=== PATIENT | female | born 1950 | race Caucasian/White ===

== ENCOUNTER → 2018-01-14 09:44 | Outpatient (CLI) | payer MEDICARE, OTHER, SELFPAY ==
--- NOTE | 2018-01-14 09:50 | MM_ITS ---
MM Dig screening mamm BI w/CAD CAD Screening ORDERING PHYSICIAN : Daylin Carrillo PATIENT AGE: 67 years GENDER: Female HISTORY no hormones no new complaints. Previous benign biopsy left breast. Family history mother with breast cancer in her 50s COMPARISON: Bilateral mammograms: September 2016, July 2014. It September 2011 also July 2010 Right [id number] . TECHNIQUE: Standard CC and MLO images were obtained. Axillary cc views both breast included R2 CAD reviewed. SCREENING MAMMOGRAM FINDINGS:. ... Mild to moderate residual fibroglandular elements towards upper-outer quadrant both breast. Stable mild asymmetry RIGHT BREAST:No new areas of significant concern. . The small cluster crush stone type most likely benign calcification at left breast upper-outer quadrant right breast similar to previous studies dating back to 2013.. Grouping is actually been present since 2011, and 2009 studies with only incrementally progression. Appears be most likely benign calcification and can be followed in one year.. LEFT BREAST:No new areas of significant concern IMPRESSION: No significant new findings either breast. Bilateral follow-up in one year recommended. Right breast..: Stable appearance to the most likely benign calcifications at the upper outer quadrant Left breast: unremarkable BI-RADS Category: 2 Benign Finding(s) RECOMMENDED FOLLOW-UP: 1YR - 1 YEAR FOLLOW-UP (A letter has been sent to the patient regarding results of the study.)
--- NOTE | 2018-01-14 09:51 | XR_ITS ---
XR DEXA axial skeleton HISTORY: ITS.REASON: POST MENOPAUSAL ORDERING PHYSICIAN: Daylin Carrillo PATIENT AGE: 67 years FINDINGS: The BMD measured at the left femoral neck is 0.805 g/cm squared with a T score of -1.7 . This is considered Osteopenic according to the World Health Organization criteria. Fracture risk is Moderate. Treatment is advised. L1 L4 density T score of -1.5 consistent with osteopenia. IMPRESSION: Osteopenia with moderate fracture risk. Treatment recommended. Recommend follow-up exam January 2020
--- NOTE | 2018-01-14 09:52 | CT_ITS ---
CT lung screening EXAM: CT LUNG LOW DOSE WO CONTRAST COMPARISON: None HISTORY: 67-year-old female with nicotine dependence, tobacco use asymptomatic ITS.REASON: H/O NICOTINE DEPENDENCE ORDERING PHYSICIAN: Daylin Carrillo PATIENT AGE: 67 years TECHNIQUE: The exam was performed on a GE Light Speed [address] scanner using 2.9 mGy CTDI. A low dose helical CT CHEST was performed on a multi-detector scanner. All CT scans at the facility use one or more dose reduction, viz: automated exposure control; ma/kV adjustment per patient size (including targeted exams where dose is matched to indication; i.e. head); or iterative reconstruction technique. The LDCT was performed in a facility that meets the criteria for the screening program. Data regarding this exam was submitted to ACR which is an approved registry. The order for this exam indicates that it came as a result of a lung cancer screening counseling shard decision-making visit that included all the elements required of such a visit including smoking cessation. The radiologist interpreting this exam meets the CMS criteria for the LDCT lung cancer screening program. The exam is reported using the Lung-RADS classification scale and reported to the ACR registry. NOTE: This study was performed for the specific purposes of lung cancer screening and is not an alternative to diagnostic chest CT. RADIATION DOSE: CTDI vol(CT dose Index-volume) = 2.90 mG DLP (Dose Length Product) = 91.32 mGcm FINDINGS: Indeterminate or Suspicious Lung Nodules(Category3-4B): None Indeterminate/Non-actionable Nodules(Category2): None Benign nodules(Category1)calcified granuloma right lower lobe LUNG PARENCHYMA No lobar consolidation or collapse. Mild coarsening of the bronchovascular markings. Small lymph nodes are present in the mediastinum. Calcified nodes present in the mediastinum and [place] OTHER ANATOMIC REGIONS Lymph Nodes: No enlarged lymph nodes evident. Scattered small nodes are present in the mediastinum and [place] Pleura: Unremarkable Cardiac: There are coronary artery calcifications OTHER FINDINGS: Medium-sized hiatal hernia IMPRESSION: 1. Lung RADS Category: 2, benign 2. Other findings: Coronary artery calcifications indicating coronary artery disease. Hiatal hernia. Old granulomatous disease RECOMMENDATIONS: 12 month LDCT follow-up
== END ==
PROVIDERS: Family Provider Internal Medicine Adolescent Medicine; PCP Internal Medicine Adolescent Medicine; Visit Provider Nurse Practitioner Family
DX: Z12.31 Encounter for screening mammogram for malignant neoplasm of breast (principal); Z78.0 Asymptomatic menopausal state; Z87.891 Personal history of nicotine dependence; Z12.2 Encounter for screening for malignant neoplasm of respiratory organs; Z13.820 Encounter for screening for osteoporosis
CPT/HCPCS: 77067; 77080

== ENCOUNTER → 2018-02-09 06:34 | Outpatient (CLI) | payer MEDICARE, OTHER, SELFPAY ==
--- NOTE | 2018-02-09 06:42 | NM_ITS ---
SPECT MYOCARDIAL PERFUSION SCAN, REST AND STRESS: EXERCISE STRESS: [facility] - BEND REVIEW QGS EF AND WALL MOTION EVALUATION: QPS - PERFUSION EVALUATION: HISTORY: SOB, Fatigue, HTN, DM, Tobacco use PROCEDURE: Rest imaging performed after administration of10.77 millicuries Tc MIBI. Dose administered at7:00 a.m., with imaging thereafter. Stress imaging was then performed following8 minutes 30 seconds of exercise stress. The patient achieved a heart [id number] with projected heart rate of132 . Resting BP162/84 with stress 180/90. At maximum exercise stress,30.7 millicuries Tc MIBI administered at8:50 a.m. with [id number] minutes thereafter. FINDINGS: Perfusion Evaluation: The single slice spect images as well as the [facility] bull's-eye data summary were reviewed. Wall Motion and Ejection Fraction Evaluation: Gated SPECT review and analysis used to evaluate these features. There is a 74 % left ventricular ejection fraction. There seems to be good wall motion Decreased myocardial activity in the anterior wall with both stress and rest. Gated images calculated ejection fraction of 74% with normal wall motion IMPRESSION: This test is most consistent with breast attenuation. Clinical correlation is advised. Normal ejection fraction normal wall motion
--- NOTE | 2018-02-09 09:28 | HMH.ITSHM ---
ASA LEVOTHYROXINE LISINOPRIL BISOPROLOL METFORMIN LORATIDINE ATORVASTATIN MULTIVITAMIN CALCIUM
== END ==
PROVIDERS: Family Provider Internal Medicine Adolescent Medicine; PCP Internal Medicine Adolescent Medicine; Visit Provider Nurse Practitioner Family
DX: R06.00 Dyspnea, unspecified (principal); I25.84 Coronary atherosclerosis due to calcified coronary lesion; I25.10 Atherosclerotic heart disease of native coronary artery without angina pectoris
CPT/HCPCS: 78452; 93017; A9502

== ENCOUNTER → 2019-01-08 10:43 | Outpatient (CLI) | payer MEDICARE, OTHER, SELFPAY ==
[2019-01-08 11:21] LABS: Basophils # 0.1 K/mm3 (0-0.2); Basophils % 0.6 % (0.1-2.0); Eosinophils # 0.1 K/mm3 (0.0-0.4); Eosinophils % 1.1 % (0.1-12.0); Hematocrit 36.6 % (37.0-47.0); Hemoglobin 12.2 g/dL (12.2-16.2); Lymphocytes # 1.8 K/mm3 (0.7-4.5); Lymphocytes % 18.3 % (10-50); Mean Corpuscular HGB Conc 33.3 g/dL (31.8-35.4); Mean Corpuscular Hemoglobin 26.7 pg (27.0-31.2); Mean Corpuscular Volume 80.3 fl (81-99); Monocytes # 0.6 K/mm3 (0.1-1.0); Monocytes % 5.9 % (1.7-9.3); Neutrophils # 7.4 K/mm3 (1.8-7.8); Neutrophils % 74.2 % (37.0-80.0); Platelet Count 412 K/mm3 (142-424); Red Blood Count 4.56 M/mm3 (4.20-5.40); Red Cell Distribution Width 13.7 % (11.5-17.5)
[2019-01-08 12:11] LABS: Alanine Aminotransferase 39 U/L (12-78); Albumin Level 3.5 gm/dL (3.4-5.0); Albumin/Globulin Ratio 0.9 (1.1-1.8); Alkaline Phosphatase 170 U/L (46-116); Anion Gap 14.9 mEq/L (5-15); Aspartate Amino Transferase 16 U/L (15-37); Bilirubin,Total 0.3 mg/dL (0.2-1.0); Blood Urea Nitrogen 23 mg/dL (7-18); Calcium 9.6 mg/dL (8.5-10.1); Carbon Dioxide 29 mmol/L (21.0-32.0); Chloride 102 mmol/L (98-107); Creatine Kinase 54 U/L (26-192); Estimated Glomerular Filt Rate 100 ml/min (>60); Free Thyroxine Index 2.6 ug/dL (5.93-13.13); GFR (African American) 121 ML/MIN (>60); Glucose 90 mg/dL (74-106); Potassium 3.9 mmoL/L (3.5-5.1); Sodium 142 mmol/L (136-145); T4 (Thyroxine) 7.9 ug/dl (4.7-13.3); Thyroid Stimulating Hormone 1.23 uIU/ml (0.358-3.740); Total Protein,Serum 7.5 gm/dL (6.4-8.2); Triiodothryronine (T3) Uptake 33 % (31-39)
[2019-01-08 12:18] LABS: Hemoglobin A1C 6.2 % (0.0-7.0)
[2019-01-09 20:42] LABS: Vitamin D 25 Hydroxy 44.3 ng/mL (30.0-100.0)
[2019-01-12 14:08] LABS: Ferritin 216 ng/mL (8-388)
[2019-01-13 10:14] LABS: Iron 19 ug/dL (27-139); UIBC 275 ug/dL (118-369)
[2019-01-13 13:55] LABS: Folate >20.0 ng/mL (>3.0); Iron Saturation 6 % (15-55); Vitamin B12 1006 pg/mL (232-1245)
== END ==
PROVIDERS: Visit Provider Internal Medicine Adolescent Medicine
DX: E03.9 Hypothyroidism, unspecified (principal); E11.9 Type 2 diabetes mellitus without complications; M79.10 Myalgia, unspecified site
CPT/HCPCS: 36415; 80053; 82550; 82607; 82652; 82728; 82746; 83036; 83540; 83550; 83735; 84436; 84443; 84479; 85025

== ENCOUNTER → 2019-01-18 14:06 | Outpatient (POV) | payer MEDICARE, OTHER, SELFPAY | PROVIDERS: Visit Provider Specialist | DX: R20.2 Paresthesia of skin (principal); M79.641 Pain in right hand; M79.642 Pain in left hand | CPT/HCPCS: 95886; 95909 ==

== ENCOUNTER → 2019-02-03 12:10 | Outpatient (CLI) | payer MEDICARE, OTHER, SELFPAY ==
[2019-02-03 13:56] LABS: Erythrocyte Sedimentation Rate 100 mm/hr (0-30)
[2019-02-03 15:08] LABS: C-Reactive Protein 12.6 mg/L (0.0-0.9)
[2019-02-04 09:33] LABS: RA Latex Turbid. 10.6 IU/mL (0.0-13.9)
[2019-02-04 13:11] LABS: Anti-Centromere B Antibodies <0.2 AI (0.0-0.9); Anti-Jo-1 <0.2 AI (0.0-0.9); Anti-Smith Antibody <0.2 AI (0.0-0.9); Antichromatin Antibodies <0.2 AI (0.0-0.9); Antiscleroderma-70 Antibodies <0.2 AI (0.0-0.9); RNP Antibodies 0.2 AI (0.0-0.9); Sjogren's Anti-SS-A <0.2 AI (0.0-0.9); Sjogren's Anti-SS-B <0.2 AI (0.0-0.9)
[2019-02-04 14:08] LABS: Anti-DNA (DS) Ab Qn <1 IU/mL (0-9)
[2019-02-05 07:34] LABS: Anti-Cyclic Citrullinated Pept 13 units (0-19)
== END ==
PROVIDERS: Visit Provider Internal Medicine Adolescent Medicine
DX: M12.9 Arthropathy, unspecified (principal)
CPT/HCPCS: 36415; 85651; 86140; 86200; 86225; 86235; 86431

== ENCOUNTER → 2019-04-29 14:11 | Outpatient (CLI) | payer MEDICARE, OTHER, SELFPAY ==
[2019-04-29 14:36] LABS: Basophils # 0.1 K/mm3 (0-0.2); Basophils % 0.6 % (0.1-2.0); Eosinophils # 0.1 K/mm3 (0.0-0.4); Eosinophils % 1.9 % (0.1-12.0); Hematocrit 39.1 % (37.0-47.0); Hemoglobin 12.4 g/dL (12.2-16.2); Lymphocytes # 1.6 K/mm3 (0.7-4.5); Mean Corpuscular HGB Conc 31.7 g/dL (31.8-35.4); Mean Corpuscular Hemoglobin 25.1 pg (27.0-31.2); Mean Corpuscular Volume 79.2 fl (81-99); Mean Platelet Volume 7.1 fl (7.4-10.4); Monocytes # 0.5 K/mm3 (0.1-1.0); Monocytes % 6.1 % (1.7-9.3); Neutrophils # 5.3 K/mm3 (1.8-7.8); Neutrophils % 70.3 % (37.0-80.0); Platelet Count 380 K/mm3 (142-424); Red Blood Count 4.93 M/mm3 (4.20-5.40); Red Cell Distribution Width 16.7 % (11.5-17.5); White Blood Count 7.5 K/mm3 (4.8-10.8)
[2019-04-29 16:31] LABS: Alanine Aminotransferase 23 U/L (12-78); Albumin Level 3.7 gm/dL (3.4-5.0); Alkaline Phosphatase 199 U/L (46-116); Aspartate Amino Transferase 14 U/L (15-37); Bilirubin,Total 0.1 mg/dL (0.2-1.0); Blood Urea Nitrogen 28 mg/dL (7-18); Calcium 9.5 mg/dL (8.5-10.1); Carbon Dioxide 30 mmol/L (21.0-32.0); Chloride 103 mmol/L (98-107); Creatinine,Serum 0.66 mg/dL (0.55-1.02); Estimated Glomerular Filt Rate 90 ml/min (>60); Ferritin 91 ng/mL (8-388); GFR (African American) 108 ML/MIN (>60); Globulin 3.6 gm/dl (1.3-3.2); Glucose 128 mg/dL (74-106); Lactate Dehydrogenase 152 U/L (82-234); Sodium 141 mmol/L (136-145); Total Protein,Serum 7.3 gm/dL (6.4-8.2)
[2019-05-01 06:09] LABS: Iron 22 ug/dL (27-139); UIBC 296 ug/dL (118-369)
[2019-05-01 12:51] LABS: Folate 15.7 ng/mL (>3.0); Haptoglobin 364 mg/dL (34-200); Iron Saturation 7 % (15-55); Vitamin B12 746 pg/mL (232-1245)
== END ==
PROVIDERS: Visit Provider Internal Medicine Medical Oncology
DX: D64.9 Anemia, unspecified (principal)
CPT/HCPCS: 36415; 80053; 82607; 82728; 82746; 83010; 83540; 83550; 83615; 85025

== ENCOUNTER 2019-05-19 09:49 | Outpatient (CLI) | payer MEDICARE, OTHER, SELFPAY ==
[2019-05-19 10:15] VITALS: BP 122/69; PULSE 59; RESP 18; TEMP 36.7; O2SAT 97
[2019-05-19 10:45] VITALS: BP 119/62; PULSE 61; RESP 18; O2SAT 98
[2019-05-19 10:55] VITALS: BP 121/68; PULSE 64; RESP 18; O2SAT 98
== END 2019-05-19 10:55 | disposition home or self-care (01) ==
LOC: INF 09:49
PROVIDERS: Visit Provider Internal Medicine Medical Oncology
DX: D50.9 Iron deficiency anemia, unspecified (principal); T45.4X5A Adverse effect of iron and its compounds, initial encounter
CPT/HCPCS: 96365; J1439

== ENCOUNTER 2019-05-26 09:40 | Outpatient (CLI) | payer MEDICARE, OTHER, SELFPAY ==
[2019-05-26 10:30] VITALS: BP 111/63; PULSE 60; RESP 18
[2019-05-26 10:45] VITALS: BP 139/76; PULSE 62; RESP 18
== END 2019-05-26 10:55 | disposition home or self-care (01) ==
LOC: INF 09:44
PROVIDERS: Visit Provider Internal Medicine Medical Oncology
DX: D50.9 Iron deficiency anemia, unspecified (principal); T45.4X5A Adverse effect of iron and its compounds, initial encounter
CPT/HCPCS: 96374; J1439

== ENCOUNTER → 2019-06-21 13:03 | Outpatient (CLI) | payer MEDICARE, OTHER, SELFPAY ==
--- NOTE | 2019-06-21 13:09 | XR_ITS ---
PROCEDURE: XR CHEST 2V CLINICAL HISTORY: FATIGUE, ELEVATED C-REACTIVE PROTIEN Positive TB skin test COMPARISON: LUNGSCREEN CT lung screening from 01/14/2018 FINDINGS: The cardiomediastinal silhouette and pulmonary vascularity are within normal limits. The lungs are clear without infiltrates, suspicious nodules, or pleural effusions. There is evidence of old granulomatous disease. No cavitating lesions are evident. There is a 9 mm nodular density overlying the right lower lobe posteriorly. A calcified granuloma is present in this region on the previous CT scan. IMPRESSION: No acute finding. No evidence of active tuberculosis Dictated by: Jose Fraser MD 06/21/2019 13:39 Electronically signed by Jose Fraser MD in [place] 06/21/2019 13:39
== END ==
PROVIDERS: PCP Internal Medicine Adolescent Medicine; Visit Provider Internal Medicine
DX: L40.9 Psoriasis, unspecified (principal); M25.50 Pain in unspecified joint; R53.83 Other fatigue; R70.0 Elevated erythrocyte sedimentation rate; R79.82 Elevated C-reactive protein (CRP)
CPT/HCPCS: 71046

== ENCOUNTER → 2019-08-06 08:45 | Outpatient (CLI) | payer MEDICARE, OTHER, SELFPAY ==
[2019-08-06 09:00] LABS: Basophils % 0.6 % (0.1-2.0); Eosinophils # 0.1 K/mm3 (0.0-0.4); Eosinophils % 1.3 % (0.1-12.0); Hematocrit 43.2 % (37.0-47.0); Hemoglobin 14.4 g/dL (12.2-16.2); Lymphocytes # 1.8 K/mm3 (0.7-4.5); Lymphocytes % 25.2 % (10-50); Mean Corpuscular HGB Conc 33.4 g/dL (31.8-35.4); Mean Corpuscular Hemoglobin 29.5 pg (27.0-31.2); Mean Corpuscular Volume 88.2 fl (81-99); Mean Platelet Volume 7.9 fl (7.4-10.4); Monocytes # 0.3 K/mm3 (0.1-1.0); Monocytes % 4.9 % (1.7-9.3); Neutrophils # 4.8 K/mm3 (1.8-7.8); Platelet Count 288 K/mm3 (142-424); Red Cell Distribution Width 15.7 % (11.5-17.5)
[2019-08-06 10:11] LABS: Ferritin 979 ng/mL (8-388)
[2019-08-07 05:56] LABS: Iron 116 ug/dL (27-139); UIBC 138 ug/dL (118-369)
[2019-08-07 19:24] LABS: Iron Saturation 46 % (15-55)
== END ==
PROVIDERS: Visit Provider Internal Medicine Medical Oncology
DX: D50.9 Iron deficiency anemia, unspecified (principal)
CPT/HCPCS: 36415; 82728; 83540; 83550; 85025

== ENCOUNTER → 2019-10-29 10:09 | Outpatient (CLI) | payer MEDICARE, OTHER, SELFPAY ==
[2019-10-29 11:24] LABS: Basophils # 0.1 K/mm3 (0-0.2); Eosinophils # 0.1 K/mm3 (0.0-0.4); Eosinophils % 1.3 % (0.1-12.0); Hematocrit 45.3 % (37.0-47.0); Hemoglobin 14.9 g/dL (12.2-16.2); Lymphocytes # 1.8 K/mm3 (0.7-4.5); Lymphocytes % 25.3 % (10-50); Mean Corpuscular HGB Conc 32.8 g/dL (31.8-35.4); Mean Corpuscular Hemoglobin 29.8 pg (27.0-31.2); Mean Corpuscular Volume 90.9 fl (81-99); Mean Platelet Volume 7.9 fl (7.4-10.4); Monocytes # 0.3 K/mm3 (0.1-1.0); Monocytes % 4.6 % (1.7-9.3); Neutrophils # 4.7 K/mm3 (1.8-7.8); Neutrophils % 67.9 % (37.0-80.0); Platelet Count 280 K/mm3 (142-424); Red Blood Count 4.99 M/mm3 (4.20-5.40); Red Cell Distribution Width 12.9 % (11.5-17.5)
[2019-10-29 12:04] LABS: Alanine Aminotransferase 27 U/L (12-78); Albumin Level 4.7 g/dl (3.5-5.0); Albumin/Globulin Ratio 1.8 (1.1-1.8); Alkaline Phosphatase 125 U/L (38-126); Anion Gap 11.3 mEq/L (5-15); Aspartate Amino Transferase 29 U/L (14-36); Bilirubin,Total 0.4 mg/dl (0.2-1.3); Blood Urea Nitrogen 26 mg/dl (7-17); Calcium 10.3 mg/dl (8.4-10.2); Carbon Dioxide 32 mmol/L (22.0-30.0); Chloride 100 mmol/L (98-107); Estimated Glomerular Filt Rate 123 ml/min (>60); GFR (African American) 149 ML/MIN (>60); Globulin 2.6 g/dL (1.3-3.2); Glucose 87 mg/dl (74-100); Potassium 4.3 mmoL/L (3.5-5.1); Sodium 139 mmol/L (136-145); Total Protein,Serum 7.3 g/dl (6.3-8.2)
[2019-10-29 13:33] LABS: Hemoglobin A1C 5.6 % (4.0-6.0)
== END ==
PROVIDERS: Visit Provider Internal Medicine Adolescent Medicine
DX: E11.9 Type 2 diabetes mellitus without complications (principal); E03.9 Hypothyroidism, unspecified; L40.50 Arthropathic psoriasis, unspecified; Z79.84 Long term (current) use of oral hypoglycemic drugs
CPT/HCPCS: 36415; 80053; 83036; 84443; 85025

== ENCOUNTER → 2020-07-06 11:03 | Outpatient (CLI) | payer MEDICARE, OTHER, SELFPAY ==
[2020-07-06 12:26] LABS: Basophils # 0.2 K/mm3 (0-0.2); Basophils % 1.6 % (0.1-2.0); Eosinophils # 0.1 K/mm3 (0.0-0.4); Eosinophils % 1.3 % (0.1-12.0); Hematocrit 46.3 % (37.0-47.0); Hemoglobin 15.9 g/dL (12.2-16.2); Lymphocytes # 2.1 K/mm3 (0.7-4.5); Lymphocytes % 22.4 % (10-50); Mean Corpuscular HGB Conc 34.3 g/dL (31.8-35.4); Mean Corpuscular Hemoglobin 31.5 pg (27.0-31.2); Mean Platelet Volume 8.7 fl (7.4-10.4); Monocytes # 0.4 K/mm3 (0.1-1.0); Monocytes % 4.6 % (1.7-9.3); Neutrophils # 6.6 K/mm3 (1.8-7.8); Neutrophils % 70.1 % (37.0-80.0); Platelet Count 279 K/mm3 (142-424); Red Blood Count 5.03 M/mm3 (4.20-5.40); Red Cell Distribution Width 12.9 % (11.5-17.5); White Blood Count 9.5 K/mm3 (4.8-10.8)
[2020-07-06 12:54] LABS: Alanine Aminotransferase 30 U/L (12-78); Albumin Level 4.9 g/dl (3.5-5.0); Albumin/Globulin Ratio 1.7 (1.1-1.8); Alkaline Phosphatase 187 U/L (38-126); Anion Gap 14.4 mEq/L (5-15); Aspartate Amino Transferase 30 U/L (14-36); Bilirubin,Total 0.3 mg/dl (0.2-1.3); Blood Urea Nitrogen 27 mg/dl (7-17); Calcium 10.5 mg/dl (8.4-10.2); Carbon Dioxide 29 mmol/L (22.0-30.0); Chloride 101 mmol/L (98-107); Chol/HDL Ratio 4.1 (1-3.5); Cholesterol 228 mg/dl (140-200); Estimated Glomerular Filt Rate 83 ml/min (>60); GFR (African American) 101 ML/MIN (>60); Globulin 2.9 g/dL (1.3-3.2); Glucose 91 mg/dl (74-100); HDL Cholesterol 56 mg/dl (40-60); Potassium 4.4 mmoL/L (3.5-5.1); Sodium 140 mmol/L (136-145); Total Protein,Serum 7.8 g/dl (6.3-8.2); Triglycerides 222 mg/dl (30-150); VLDL Cholesterol 44 mg/dL (0-40)
[2020-07-06 13:04] LABS: Direct LDL Cholesterol 151.35 mg/dL (100-129)
[2020-07-06 13:25] LABS: Thyroid Stimulating Hormone 0.94 uIU/mL (0.465-4.68)
== END ==
PROVIDERS: Visit Provider Internal Medicine Adolescent Medicine
DX: E78.2 Mixed hyperlipidemia (principal); E03.9 Hypothyroidism, unspecified; E11.9 Type 2 diabetes mellitus without complications; Z79.84 Long term (current) use of oral hypoglycemic drugs
CPT/HCPCS: 36415; 80053; 80061; 83036; 84443; 85025